=== PATIENT | female | born 1965 | race Hispanic/Latino ===

== ENCOUNTER 2020-10-21 18:32 | Emergency (ER) | payer OTHER ==
[~2020-10-21] VITALS: Ht 154.9 cm; Wt 83.9 kg
[~2020-10-21 18:32] MED LIST: KEFLEX500 MG PO; LEVAQUIN500 MG PO; NORCO 7.5-3251 EACH PO
[2020-10-21] MEDS ORDERED: ONDANSETRON HCL 4 MG ORAL DISINTEGRATING TAB PO ONE (19:00)
--- NOTE | 2020-10-21 19:18 | Emergency Department Note ---
History of Present Illnes History of Present Illness Chief Complaint: General Medicine Complaints History of Present Illness This is a 54 year old female in from home with complaints of two episodes of vomiting today with some diarrhea. Patient has a history of Crohns with a colostomy. Denies fever. Afebrile in triage. pt's daughter is here with same symptoms that started today, she also reports over the past week multiple family members have had n/v/d . Historian: Patient Arrival Mode: Car Administrative Personal Assistant Required: No Onset (how long ago): hour(s) (12) Location: abd Quality: n/v Radiation: Reports non-radiation Severity: mild Onset quality: sudden Duration (how long): hour(s) (12) Timing of current episode: intermittent Progression: waxing and waning Chronicity: new Context: Denies recent illness, Denies recent surgery Relieving factors: none Exacerbating factors: none Associated symptoms: Reports denies other symptoms Treatments prior to arrival: none Past Medical/Family History Physician Review I have reviewed the patient's past medical and family history. Any updates have been documented here. Past Medical History Recent Fever: No Clinical Suspicion of Infectio: No New/Unexplained Change in Ment: No Other Medical History: CROHNS DISEASE COLOSTOMY BAG Past Surgical History: Cholecysctectomy, Hysterectomy Other Surgery: bowel resection colostomy RECTUM CLOSED Social History Smoking Cessation: Never Smoker Counseling Performed: No Alcohol Use: Occasional Any Illegal Drug Use: No Other Last Tetanus: unknown Any Pre-Existing Lines (PICC,: No Review of Systems Review of Systems Constitutional: Reports no symptoms EENTM: Reports no symptoms Cardiovascular: Reports no symptoms Respiratory: Reports no symptoms Gastrointestinal: Reports as per HPI Genitourinary: Reports no symptoms Musculoskeletal: Reports no symptoms Integumentary: Reports no symptoms Neurological: Reports no symptoms Psychological: Reports no symptoms Endocrine: Reports no symptoms Hematological/Lymphatic: Reports no symptoms Physical Exam Related Data Allergies: Coded Allergies: No Known Drug Allergies (Verified Allergy, Unknown, 01/23/15) Triage Vital Signs Vital Signs Date Time Temp Pulse Resp B/P (MAP) Pulse Ox O2 Delivery O2 Flow Rate FiO2 10/21/20 18:49 98.6 111 17 117/80 100 Room Air Vital signs reviewed: Yes Physical Exam CONSTITUTIONAL Constitutional: Present well-developed, Present well-nourished HENT HENT: Present normocephalic, Present atraumatic, Present oropharynx clear/ moist, Present nose normal HENT L/R: Present left ext ear normal, Present right ext ear normal EYES Eyes: Reports PERRL, Reports conjunctivae normal NECK Neck: Present ROM normal PULMONARY Pulmonary: Present effort normal, Present breath sounds normal CARDIOVASCULAR Cardiovascular: Present regular rhythm, Present heart sounds normal, Present capillary refill normal, Present tachycardia (102) GASTROINTESTINAL Abdominal: Present soft, Present nontender, Present bowel sounds normal, Present other (colostomy present with stool and gas in collection bag) GENITOURINARY Genitourinary: Present exam deferred SKIN Skin: Present warm, Present dry MUSCULOSKELETAL Musculoskeletal: Present ROM normal NEUROLOGICAL Neurological: Present alert, Present oriented x 3, Present no gross motor or sensory deficits PSYCHOLOGICAL Psychological: Present mood/affect normal, Present judgement normal Assessment & Plan Medical Decision Making [facility] pt with n/v with multiple family members with same over past week 2 view abd ordered to eval for sbo since pr has colostomy zofran 4 mg po ordered Assessment & Plan Final Impression: (1) Nausea & vomiting (2) Viral syndrome Depart Disposition: HOME, SELF-CARE Last Vital Signs Date Time Temp Pulse Resp B/P (MAP) Pulse Ox O2 Delivery O2 Flow Rate FiO2 10/21/20 18:49 98.6 111 17 117/80 100 Room Air Home Meds Reported Medications Cephalexin Monohydrate (KEFLEX) 500 Mg Capsule, 500 MG PO TID, #20 03/16/16 Medications in the ED Ondansetron HCl 4 mg ONCE ONCE PO Last administered on 10/21/20at 19:08; Admin Dose 4 MG; Start 10/21/20 at 19:00; Stop 10/21/20 at 19:12; Status DC ANUPAMA STARR MD Oct 21, 2020 19:18
--- NOTE | 2020-10-21 20:27 | Diagnostic Imaging Report ---
EXAM: Abdomen Radiograph 1 View(s) INDICATION: ^flat and upright, vomitin ^20201021 ^1919 ^Y COMPARISON: None FINDINGS: No abnormalities in the lower chest. Nonobstructive bowel gas pattern. No abnormal calcification. Multilevel degenerative changes of the spine. The sacroiliac joints are symmetric. Surgical clips projecting over the right upper quadrant likely from cholecystectomy. Additional surgical clips seen projecting over the pelvis. IMPRESSION: Nonobstructive bowel gas pattern. No acute abdominal radiographic abnormality. Signed by: August Mack MD on 10/21/2020 8:24 PM
--- OUTSIDE RECORDS SUMMARY | 2020-10-21 20:31 | XMS REPORT | Continuity of Care Document ---
Author Author [facility] t Organization [facility] Address [address] [place] [address] Phone Unavailable Care Team Providers Care Preassembler [employer] Name Role Phone Vandana STARR Unavailable Payers Payer Name Policy Type Policy Number Effective Date Expiration Date S ource Problems This patient has no known problems. Allergies, Adverse Reactions, Alerts Allergy Name Allergy Type Status Severity Reaction(s) Onset Date Inacti ve Date Treating Clinician Comments Source No Known Allergies DA Active U 2019-06-20 00:00:00 [facility] No Known Allergies DA Active U 2018-02-04 00:00:00 [facility] Medications This patient has no known medications. Procedures This patient has no known procedures. Results Test Description Test Time Test Comments Results Result Comments Source ABDOMEN 2 VIEW 2020-10-21 20:22:00 [facility] : 1965 Sex: F [facility] [address], [place] [address] Patient Name: KVNG GREEN MR #: [id number] : 1965 Age/Sex: 54/F Req #: [id number] [facility] Physician: Ordered by: ANUPAMA STARR MD Report #: [id number] Location: ER Room/Bed: Procedure: [id number] DX/ABDOMEN 2 VIEW Exam Date: 10/21/20 Exam Time: 1919 REPORT STATUS: Signed EXAM: Abdomen Radiograph 1 View(s) INDICATION: flat and upright, vomitin 20201021 Y COMPARISON: None FINDINGS: No abnormalities in the lower chest. Nonobstructive bowel gas pattern. No abnormal calcification. Multilevel degenerative changes of the spine. The sacroiliac joints are symmetric. Surgical clips projecting over the right upper quadrant likely from cholecystectomy. Additional surgical clips seen projecting over the pelvis. IMPRESSION: Nonobstructive bowel gas pattern. No acute abdominal radiographic abnormality. Signed by: Clement Fish MD on 10/21/2020 8:24 PM Dictated By: CLEMENT FISH MD 23 Transcribed By: JULIA on 10/21/202023 COPY TO: ANUPAMA STARR MD UA RFLX MICROSOPIC 2019-06-21 01:51:00 Test Item UA COLOR (test code = COLU) DARK YELLOW YELLOW UA APPEARANCE (test code = APPU) HAZY CLEAR UA GLUCOSE DIPSTICK (test code = DGLUU) NEGATIVE mg/dL NEGATIVE UA BILIRUBIN DIPSTICK (test code = BILU) 1+ NEGATIVE A Not able to rule out false positive; No confirmatory test. UA KETONE DIPSTICK (test code = KETU) 15 mg/dL NEGATIVE A UA SPECIFIC GRAVITY (test code = SGU) 1.030 1.001-1.035 N UA BLOOD DIPSTICK (test code = BALDEMAR) 1+ NEGATIVE A UA PH DIPSTICK (test code = HODA) 5.0 5.5-7.0 L UA PROTEIN DIPSTICK (test code = PROU) 75 mg/dL NEGATIVE A UA UROBILINOGEN DIPSTICK (test code = URO) 1.0 mg/dL NORMAL UA NITRITE DIPSTICK (test code = JUAN JOSE) NEGATIVE NEGATIVE UA LEUKOCYTE ESTERASE DIPSTICK (test code = LEUU) 2+ NEGA TIVE A UA COMMENT (test code = COMU) VOLUME 10-12 ML URINE SPECIMEN DESCRIPTION (test code = UASPEC) Clean Catch UA [id number] 01:51:00* Test Item Value Reference Range Interpretation Comments UA WBC (test code = WBCU) > 10 #/hpf <10 A UA RBC (test code = RBCU) 5-10 #/hpf NONE SEEN A UA BACTERIA (test code = BACU) 2+ #/hpf NONE SEEN UA SQUAMOUS CELLS (test code = SQU) 20 - 40 #/lpf <100 UA HYALINE CAST (test code = HYALU) 5-10 #/lpf A UA RFLX [id number] 01:43:00* Test Item Value Reference Range Interpretation Comments UA COLOR (test code = COLU) DARK YELLOW YELLOW UA APPEARANCE (test code = APPU) HAZY CLEAR UA GLUCOSE DIPSTICK (test code = DGLUU) NEGATIVE mg/dL NEGATIVE UA BILIRUBIN DIPSTICK (test code = BILU) 1+ NEGATIVE A Not able to rule out false positive; No confirmatory test. UA KETONE DIPSTICK (test code = KETU) 15 mg/dL NEGATIVE A UA SPECIFIC GRAVITY (test code = SGU) 1.030 1.001-1.035 N UA BLOOD DIPSTICK (test code = BALDEMAR) 1+ NEGATIVE A UA PH DIPSTICK (test code = HODA) 5.0 5.5-7.0 L UA PROTEIN DIPSTICK (test code = PROU) 75 mg/dL NEGATIVE A UA UROBILINOGEN DIPSTICK (test code = URO) 1.0 mg/dL NORMAL UA NITRITE DIPSTICK (test code = JUAN JOSE) NEGATIVE NEGATIVE UA LEUKOCYTE ESTERASE DIPSTICK (test code = LEUU) 2+ NEGA TIVE A UA COMMENT (test code = COMU) VOLUME 10-12 ML URINE SPECIMEN DESCRIPTION (test code = UASPEC) Clean Catch UA [id number] 01:43:00* Test Item Value Reference Range Interpretation Comments UA WBC (test code = WBCU) #/hpf <10 UA RBC (test code = RBCU) #/hpf NONE SEEN UA SQUAMOUS CELLS (test code = SQU) #/lpf <100 UA RFLX [id number] 01:43:00* Test Item Value Reference Range Interpretation Comments UA COLOR (test code = COLU) DARK YELLOW YELLOW UA APPEARANCE (test code = APPU) HAZY CLEAR UA GLUCOSE DIPSTICK (test code = DGLUU) NEGATIVE mg/dL NEGATIVE UA BILIRUBIN DIPSTICK (test code = BILU) 1+ NEGATIVE A Not able to rule out false positive; No confirmatory test. UA KETONE DIPSTICK (test code = KETU) 15 mg/dL NEGATIVE A UA SPECIFIC GRAVITY (test code = SGU) 1.030 1.001-1.035 N UA BLOOD DIPSTICK (test code = BALDEMAR) 1+ NEGATIVE A UA PH DIPSTICK (test code = HODA) 5.0 5.5-7.0 L UA PROTEIN DIPSTICK (test code = PROU) 75 mg/dL NEGATIVE A UA UROBILINOGEN DIPSTICK (test code = URO) 1.0 mg/dL NORMAL UA NITRITE DIPSTICK (test code = JUAN JOSE) NEGATIVE NEGATIVE UA LEUKOCYTE ESTERASE DIPSTICK (test code = LEUU) 2+ NEGA TIVE A UA COMMENT (test code = COMU) VOLUME 10-12 ML URINE SPECIMEN DESCRIPTION (test code = UASPEC) Clean Catch UA [id number] 01:43:00* Test Item Value Reference Range Interpretation Comments UA WBC (test code = WBCU) #/hpf <10 UA RBC (test code = RBCU) #/hpf NONE SEEN UA SQUAMOUS CELLS (test code = SQU) #/lpf <100 - CT ABD PELVIS W/O [id number] 00:41:00 Patient Name: KVNG GREEN Unit No: [id number] EXAMS: CPT CODE: [id number] CT ABD PELVIS W/O CONT [id number] Reason: ABDOMINAL PAIN EXAM: CT Abdomen and Pelvis Without Contrast EXAM DATE/TIME: 06/21/2019 12:13 AM CLINICAL HISTORY: 53 years old, female; Abdominal pain TECHNIQUE: Imaging protocol: Axial computed tomography images of the abdomen and pelvis without contrast. Coronal and sagittal reformatted images were created and reviewed. Radiation optimization: All CT scans at this facility use at least one of these dose optimization techniques: automated exposure control; mA and/or kV adjustment per patient size (includes targeted exams where dose is matched to clinical indication); or iterative reconstruction. COMPARISON: No relevant prior studies available. FINDINGS: Liver: Moderate diffuse hepatic steatosis. No hepatic mass evident. Gallbladder and bile ducts: Status post cholecystec maggie, no biliary ductal dilation. Pancreas: Pancreas and pancreati c duct normal. Spleen: Normal in size without focal lesions. Adren als: Within normal limits. Kidneys and ureters: No solid renal mass, hydr onephrosis or hydroureter. Renal parenchyma well preserved. Stomac h and bowel: Status post subtotal colectomy. Appendix: No evidence of acu te appendicitis. Intraperitoneal space: No free air. No significant fluid collection. Vasculature: No aortic or iliac aneurysm. Lym ph nodes: No enlarged lymph nodes. Bladder: Unremarkable as visua lized. Reproductive: Unremarkable as visualized. Bones/joints: Mil d degenerative changes in the spine with prominent central disc protrusio n at L4-5, shallow right L3-4. Soft tissues: Unremarkable. IMPRESSION: No acute abnormality identified in the abdomen or pelvis. Diffuse hepatic steatosis and postsurgical changes as described. at 0041 Reported and signed by: LUIS RAY MD [facility] NAME: KVNG GREEN [address] [facility] PHYS: D[place] [address] : 1965 AGE: 53 SEX: F LOC: [facility] PHONE #: [phone] EXAM DATE: 06/21/2019 STATUS: REG ER FAX #: RAD NO: DC Dt: PAGE 1 Signed Report (CONTINUED) Patient Name: KVNG GREEN Unit No: [id number] EXAMS: CPT CODE: [id number] CT ABD PELVIS W/O CONT [id number] <Continued> Reason: ABDOMINAL PAIN CC: Dai Benton DO Techno logist: Viktoriya Mendes RT Trscrpt Dt/T: (004)[email or web address].VR Orig Print D/T: S: 06/21/2019 (004) CTDI: DLP: [facility] NA ME: KVNG GREEN [address] PHYS: D[place] [address] : [birth year] AGE: 53 SEX: F 890 LOC: [facility] PHONE #: [phone] EXAM DATE: 06/21/2019 STATUS: REG ER FAX #: RAD NO: DC Dt: PAGE 2 Signed Report - XR CHEST 1 [id number] 00:32:00 Patient Name: KVNG GREEN Unit No: [id number] EXAMS: CPT CODE: [id number] XR CHEST 1 V [id number] Reason: sepsis EXAM: XR Chest, 1 View EXAM DATE/TIME: 06/20/2019 11:54 PM CLINICAL HISTORY: 53 years old, female; Other: Sepsis TECHNIQUE: Imaging protocol: XR of the chest, 1 view. COMPARISON: No relevant prior studies available. FINDINGS: Lungs: No mass, consolidation or pulmonary edema. Pleural space: No pleural effusion. No pneumothorax. Heart/Mediastinum: The cardiomediastinal silhouette and pulmonary vessels appear normal for age, technique and projection. Bones/joints: No acute fracture, dislocation or bony destruction. IMPRESSION: No active process identified in the chest. at 0032 Reported and signed by: LUIS RAY MD CC: Dai Benton DO Technologist: Mali Ervin RT Trscrpt Dt/ (003 )[email or web address].VR Orig Print D/T: S: 06/21/2019 (003) [facility] NAME: KVNG GREEN [address] PHYS: Flory [place] [address] : 1965 AGE: 53 SE X: F LOC: [facility] PHONE #: [phone] EXAM DATE: 06/20/2019 STATUS: REG ER FAX #: RAD NO: DC Dt: PAGE 1 Signed Report C REACTIVE [id number] 00:18:00* Test Item Value Reference Range Interpretation Comments C REACTIVE PROTEIN (test code = CRP) 1.7 MG/DL < 0.9 H [id number] 00:11:00* Test Item Value Reference Range Interpretation Comments PHOSPHOROUS (test code = PHOS) 4.7 MG/DL 2.5-4.9 N PROTHROMBIN [id number] 23:55:00* Test Item Value Reference Range Interpretation Comments PROTHROMBIN TIME PATIENT (test code = PTP) 12.0 SECONDS 9.6-12.3 N INTERNATIONAL NORMAL RATIO (test code = INR) 1.06 Recommended INR range (warfarin therapy): 2.0 - 3.0INR (International Normalized Ratio) should beused when interpreting oral anticoaglulant therapy. For atrial fibrillation and treatment orprevention of deep vein thrombosis. Patients with Palmaz-Mary stent *: 2.0 - 3.0 Patients with mechanical heart valve *: 2.5 - 3.5 Patients with flex-stent *: 3.0 - 4.0(*) = delivery professional's suggested range Is patient on anticoagulants? UnknownLACTIC ACID [id number] 23:54:00* Test Item Value Reference Range Interpretation Comments LACTIC ACID POC (test code = LACTP) 1.73 MMOL/L 0.90-1.70 H Performed by certified singeing torch operator at [facility] COMPREHENSIVE METABOLIC [id number] 23:43:00* Test Item Value Reference Range Interpretation Comments SODIUM (test code = NA) 134 MMOL/L 133-145 N POTASSIUM (test code = K) 4.2 MMOL/L 3.6-5.2 N CHLORIDE (test code = CL) 96 MMOL/L 100-108 L CARBON DIOXIDE (test code = CO2) 21 MMOL/L 22-32 L GLUCOSE (test code = GLU) 151 MG/DL 65-99 H Re sults of this assay method may be falsely depressed orelevated if patient is taking sulfasalazine. BLOOD UREA NITROGEN (test code = BUN) 26 MG/DL 6-20 H GLOMERULAR FILTRATION RATE (test code = GFR) 24 51-120 L Reporting units: mL/min/1.73m\S\2 (Modified MDRD Formula) CREATININE (test code = CREAT) 2.17 MG/DL 0.60-1.00 H TOTAL PROTEIN (test code = PROT) 10.3 G/DL 6.4-8.2 H ALBUMIN (test code = ALB) 5.0 G/DL 3.4-5.0 N GLOBULIN (test code = GLOB) 5.3 G/DL 1.5-3.8 H ALBUMIN/GLOBULIN RATIO (test code = A/G) 0.9 1.1-2.2 L CALCIUM (test code = CA) 12.3 MG/DL 8.7-10.5 H BILIRUBIN TOTAL (test code = BILT) 0.8 MG/DL 0.0-1.0 N SGOT/AST (test code = AST) 40 Units/L 15-37 H R esults of this assay method may be falsely depressed orelevated if patient is taking sulfasalazine. SGPT/ALT (test code = ALT) 28 Units/L 30-65 L R esults of this assay method may be falsely depressed orelevated if patient is taking sulfasalazine. ALKALINE PHOSPHATASE TOTAL (test code = ALKP) 98 Units/L 50-136 N [id number] 23:43:00* Test Item Value Reference Range Interpretation Comments LIPASE (test code = LIP) 138 Units/L 73-393 N TROPONIN I [id number] 23:26:00* Test Item Value Reference Range Interpretation Comments TROPONIN I RAPID (test code = TROPIRAP) 0.00 NG/ML 0.00-0.08 N Performed by certified singeing torch operator at [facility] - The use of serial sampling and testing protocol is a recommended practice.- An elevated troponin level alone is often not sufficient for diagnosis of myocardial infarction. CBC W/AUTO [id number] 23:23:00* Test Item Value Reference Range Interpretation Comments WHITE BLOOD CELL (test code = WBC) 13.74 x10 3/uL 4.80-10.80 H Results called to and read back by KARLI ASHER;2322, 06/20/19, D.[facility]. RED BLOOD CELL (test code = RBC) 5.52 x10 6/uL 4.2-5.4 H HEMOGLOBIN (test code = HGB) 16.0 G/DL 12.0-16.0 N HEMATOCRIT (test code = HCT) 48.1 % 37-47 H MEAN CELL VOLUME (test code = MCV) 87.1 FL 81-99 N MEAN CELL HGB (test code = MCH) 29.0 PG 27-31 N MEAN CELL HGB CONCENTRATION (test code = MCHC) 33.3 G/DL 33-37 N RED CELL DISTRIBUTION WIDTH (test code = RDW) 12.8 % 11.5-14. 5 N PLATELET COUNT (test code = PLT) 354 x10 3/uL 150-450 N MEAN PLATELET VOLUME (test code = MPV) 9.6 FL 7.4-10.4 N NEUTROPHIL % (test code = NT%) 93.5 % 42-86 H IMMATURE GRANULOCYTE % (test code = IG%) 0.3 % 0.0-2.0 N LYMPHOCYTE % (test code = LY%) 3.2 % 24-44 L MONOCYTE % (test code = MO%) 2.4 % 0.0-4.0 N EOSINOPHIL % (test code = EO%) 0.4 % 0.0-2.7 N BASOPHIL % (test code = BA%) 0.2 % 0.0-0.5 N NUCLEATED RBC % (test code = NRBC%) 0.0 % 0.0-0.0 N NEUTROPHIL # (test code = NT#) 12.85 x10 3/uL 1.8-7.7 H IMMATURE GRANULOCYTE # (test code = IG#) 0.04 x10 3/uL 0.00-0.03 H LYMPHOCYTE # (test code = LY#) 0.44 x10 3/uL 1.0-4.8 L MONOCYTE # (test code = MO#) 0.33 x10 3/uL 0.0-0.8 N EOSINOPHIL # (test code = EO#) 0.05 x10 3/uL 0.0-0.5 N BASOPHIL # (test code = BA#) 0.03 x10 3/uL 0.0-0.2 N NUCLEATED RBC # (test code = NRBC#) 0.0 X10 3/uL 0.0-0.2 N
[2020-10-21] MEDS ORDERED: PROMETHAZINE HCL (IM) 25 MG/ML VIAL IM ONE ×2 (20:45→20:47)
[2020-10-21] MEDS ORDERED: DICYCLOMINE HCL 20 MG/2 ML VIAL IM ONE ×2 (20:45→20:46)
== END 2020-10-21 21:08 | disposition home or self-care (01) ==
LOC: ER 18:58
DX: R11.2 Nausea with vomiting, unspecified (principal); B34.9 Viral infection, unspecified; Z87.19 Personal history of other diseases of the digestive system; Z93.3 Colostomy status
CPT/HCPCS: 74019; 99283; J0500; J2550; Q0162

== ENCOUNTER 2024-09-29 13:49 | Inpatient (IN) | payer OTHER ==
[~2024-09-29] VITALS: Ht 162.6 cm; Wt 83.9 kg
[~2024-09-29 13:49] MED LIST changes: +FENOFIBRATE145 MG PO
[2024-09-29 13:55] VITALS: TEMP 98.2
[2024-09-29 14:39] LABS: BASOPHILS % 0.2 % (0.0-1.0); EOSINOPHILS # (AUTO) 0.1 (0.0-0.4); EOSINOPHILS % 0.4 % (0.0-6.0); HEMOGLOBIN 12.5 g/dL (12.0-16.0); LYMPHOCYTES # (AUTO) 0.9 (1.0-3.2); LYMPHOCYTES % 7.4 % (18.0-39.1); MEAN CORPUSCULAR HEMOGLOBIN 29.1 pg (28-32); MEAN CORPUSCULAR HGB CONC 33.8 g/dL (31-35); MONOCYTES # (AUTO) 0.6 (0.2-0.8); MONOCYTES % 4.9 % (4.4-11.3); NEUTROPHILS # (AUTO) 10.3 (2.1-6.9); NEUTROPHILS % 86.7 % (38.7-80.0); PLATELET COUNT 358 x10e3/uL (140-360); RED CELL DISTRIBUTION WIDTH 12.9 % (11.7-14.4); WHITE BLOOD COUNT 11.92 x10e3/uL (4.8-10.8)
[2024-09-29] MEDS ORDERED: IOPAMIDOL 370 MG/ML 100 ML INFUS..BTL INJ ONE (14:48)
[2024-09-29 14:55] LABS: ALANINE AMINOTRANSFERASE 13 IU/L (0-55); ALBUMIN 2.5 g/dL (3.5-5.0); ALBUMIN/GLOBULIN RATIO 0.5 (0.8-2.0); ALKALINE PHOSPHATASE 63 IU/L (40-150); ANION GAP 18.7 mmol/L (8-16); BILIRUBIN,TOTAL 0.7 mg/dL (0.2-1.2); BLOOD UREA NITROGEN 18 mg/dL (7-26); BUN/CREATININE RATIO 25 (6-25); CALCIUM 9.9 mg/dL (8.4-10.2); CARBON DIOXIDE 20 mmol/L (22-29); CHLORIDE 102 mmol/L (98-107); CREATINE KINASE 48 IU/L (29-168); CREATININE, SERUM 0.71 mg/dL (0.57-1.11); EST GLOMERULAR FILTRATION RATE 100 ML/MIN (>=60); GLUCOSE 107 mg/dL (74-118); LIPASE 111 U/L (8-78); POTASSIUM 3.7 mmol/L (3.5-5.1); SODIUM 137 mmol/L (136-145); TOTAL PROTEIN 7.2 g/dL (6.5-8.1)
[2024-09-29 15:07] LABS: TROPONIN I < 0.001 ng/mL (0-0.300)
[2024-09-29] MEDS: SODIUM CHLORIDE 0.9% 1000ML 1,000 ML IV STA (15:07)
[2024-09-29] MEDS: ONDANSETRON HCL INJ 2MG/ML 2ML 2 MG/ML VIAL IV STA (15:08)
[2024-09-29] MEDS: Morphine 4mg INJECTION 4 MG/ML INJ IV STA (15:08)
[2024-09-29] MEDS: SODIUM CHLORIDE 0.9% 1000ML 1,000 ML IV SCH (17:03)
[2024-09-29] MEDS ORDERED: HYDRALAZINE HCL 20 MG/ML VIAL IV PRN (19:00)
[2024-09-29 20:30] VITALS: PULSE 81; RESP 19
[2024-09-29 21:10] VITALS: BP 137/81; PULSE 67; RESP 18; TEMP 98.5; O2SAT 97
[2024-09-30] VITALS (9 sets, daily range): BP systolic 120–141; BP diastolic 68–71; PULSE 52–74; RESP 18–20; TEMP 97.5–98.1; O2SAT 98–100
[2024-09-30] MEDS: ONDANSETRON HCL INJ 2MG/ML 2ML 2 MG/ML VIAL IV PRN (00:44)
[2024-09-30] MEDS: Morphine 4mg INJECTION 4 MG/ML INJ IV PRN (00:45)
[2024-09-30 01:18] LABS: CLARITY,URINE CLEAR (CLEAR); COLOR,URINE YELLOW (YELLOW); LEUKOCYTE ESTERASE ,URINE NEGATIVE (NEGATIVE); NITRITE,URINE NEGATIVE (NEGATIVE); PH,URINE 6 (5 - 7)
[2024-09-30 01:19] LABS: BILIRUBIN,URINE SMALL (NEGATIVE); GLUCOSE, URINE NEGATIVE (NEGATIVE); KETONES,URINE 1+ (NEGATIVE); PROTEIN,URINE DIPSTICK 1+ (NEGATIVE); URINE UROBILINOGEN 0.2 mg/dL (0.2 - 1)
[2024-09-30 01:36] LABS: BACTERIA,URINE MODERATE /HPF; EPITHELIAL CELLS,URINE MODERATE /LPF
[2024-09-30 05:14] LABS: BASOPHILS % 0.2 % (0.0-1.0); EOSINOPHILS # (AUTO) 0.2 (0.0-0.4); HEMATOCRIT 31.1 % (34.2-44.1); LYMPHOCYTES # (AUTO) 1.2 (1.0-3.2); LYMPHOCYTES % 15.1 % (18.0-39.1); MEAN CORPUSCULAR HEMOGLOBIN 29.2 pg (28-32); MEAN CORPUSCULAR HGB CONC 32.2 g/dL (31-35); MEAN CORPUSCULAR VOLUME 90.9 fL (81-99); MONOCYTES # (AUTO) 0.5 (0.2-0.8); MONOCYTES % 5.8 % (4.4-11.3); NEUTROPHILS # (AUTO) 6.1 (2.1-6.9); NEUTROPHILS % 75.3 % (38.7-80.0); PLATELET COUNT 352 x10e3/uL (140-360); RED BLOOD COUNT 3.42 x10e6/uL (3.6-5.1); RED CELL DISTRIBUTION WIDTH 12.8 % (11.7-14.4); WHITE BLOOD COUNT 8.13 x10e3/uL (4.8-10.8)
[2024-09-30 05:52] LABS: ALBUMIN/GLOBULIN RATIO 0.5 (0.8-2.0); ANION GAP 13.2 mmol/L (8-16); BILIRUBIN,TOTAL 0.6 mg/dL (0.2-1.2); CALCIUM 8.7 mg/dL (8.4-10.2); CREATININE, SERUM 0.65 mg/dL (0.57-1.11); TOTAL PROTEIN 5.8 g/dL (6.5-8.1)
[2024-09-30 05:54] LABS: POTASSIUM 3.2 mmol/L (3.5-5.1)
[2024-09-30 06:14] LABS: CHOL/HDL RATIO 4.3 (3.0-3.6); MAGNESIUM 1.8 MG/DL (1.3-2.1); PHOSPHORUS 2.2 MG/DL (2.3-4.7)
[2024-09-30 06:36] LABS: FREE T4 (FREE THYROXINE) 0.86 ng/dL (0.8-1.8); THYROID STIMULATING HORMONE 0.727 uIU/mL (0.350-4.940)
[2024-09-30] MEDS: POTASSIUM CHLORIDE 10MEQ/100ML 100 ML IV ONE (20:48)
[2024-10-01] VITALS (10 sets, daily range): BP systolic 130–149; BP diastolic 65–78; PULSE 43–58; RESP 16–20; TEMP 97.2–98.1; O2SAT 95–100
[2024-10-01 05:41] LABS: BASOPHILS % 0.4 % (0.0-1.0); EOSINOPHILS # (AUTO) 0.3 (0.0-0.4); EOSINOPHILS % 4.8 % (0.0-6.0); HEMATOCRIT 29.6 % (34.2-44.1); HEMOGLOBIN 9.4 g/dL (12.0-16.0); LYMPHOCYTES # (AUTO) 1.3 (1.0-3.2); LYMPHOCYTES % 22.9 % (18.0-39.1); MEAN CORPUSCULAR HEMOGLOBIN 29.1 pg (28-32); MEAN CORPUSCULAR HGB CONC 31.8 g/dL (31-35); MEAN CORPUSCULAR VOLUME 91.6 fL (81-99); MONOCYTES # (AUTO) 0.5 (0.2-0.8); MONOCYTES % 8.1 % (4.4-11.3); NEUTROPHILS # (AUTO) 3.6 (2.1-6.9); NEUTROPHILS % 62.9 % (38.7-80.0); PLATELET COUNT 327 x10e3/uL (140-360); RED BLOOD COUNT 3.23 x10e6/uL (3.6-5.1); RED CELL DISTRIBUTION WIDTH 12.9 % (11.7-14.4); WHITE BLOOD COUNT 5.67 x10e3/uL (4.8-10.8)
[2024-10-01 06:02] LABS: ANION GAP 13.1 mmol/L (8-16); CALCIUM 8.4 mg/dL (8.4-10.2); CREATININE, SERUM 0.63 mg/dL (0.57-1.11)
[2024-10-01 06:08] LABS: POTASSIUM 3.1 mmol/L (3.5-5.1)
[2024-10-01] MEDS: POTASSIUM CHLORIDE 20MEQ/100ML 100 ML IV SCH (14:00)
[2024-10-01] MEDS: POTASSIUM CHLORIDE 10MEQ EA PO ONE (20:57)
[2024-10-02] VITALS (10 sets, daily range): BP systolic 115–149; BP diastolic 53–79; PULSE 44–87; RESP 18; TEMP 97.5–98.2; O2SAT 95–100
[2024-10-02 05:10] LABS: BASOPHILS % 0.5 % (0.0-1.0); EOSINOPHILS # (AUTO) 0.3 (0.0-0.4); EOSINOPHILS % 4.1 % (0.0-6.0); HEMATOCRIT 27.9 % (34.2-44.1); HEMOGLOBIN 9.3 g/dL (12.0-16.0); LYMPHOCYTES # (AUTO) 1.6 (1.0-3.2); LYMPHOCYTES % 24.8 % (18.0-39.1); MEAN CORPUSCULAR HEMOGLOBIN 29.2 pg (28-32); MEAN CORPUSCULAR HGB CONC 33.3 g/dL (31-35); MEAN CORPUSCULAR VOLUME 87.5 fL (81-99); MONOCYTES # (AUTO) 0.5 (0.2-0.8); NEUTROPHILS # (AUTO) 3.9 (2.1-6.9); NEUTROPHILS % 60.9 % (38.7-80.0); PLATELET COUNT 359 x10e3/uL (140-360); RED BLOOD COUNT 3.19 x10e6/uL (3.6-5.1); WHITE BLOOD COUNT 6.36 x10e3/uL (4.8-10.8)
[2024-10-02 05:12] LABS: ANION GAP 15.3 mmol/L (8-16); CALCIUM 8.4 mg/dL (8.4-10.2); CREATININE, SERUM 0.63 mg/dL (0.57-1.11)
[2024-10-02 05:32] LABS: POTASSIUM 3.3 mmol/L (3.5-5.1)
[2024-10-02 05:35] LABS: FERRITIN 488.29 ng/mL (4.63-204.00)
[2024-10-02 06:09] LABS: RETICULOCYTE % 1.5 % (0.8-2.2)
[2024-10-02 06:30] LABS: FOLATE 15.2 ng/mL (7.0-15.4)
[2024-10-02] MEDS: CYANOCOBALAMIN INJ 1,000 MCG/ML VIAL IM SCH (10:14)
[2024-10-02] MEDS: POTASSIUM CHLORIDE 10MEQ EA PO SCH (10:16)
[2024-10-03 01:14] VITALS: BP 139/71; PULSE 48; RESP 18; TEMP 98.2; O2SAT 100
[2024-10-03 05:36] VITALS: BP 126/63; PULSE 46; RESP 18; TEMP 97.7; O2SAT 96
[2024-10-03 05:39] VITALS: BP 123/63; PULSE 46; RESP 18; TEMP 97.7; O2SAT 96
[2024-10-03 11:58] VITALS: BP 141/68; PULSE 45; RESP 19; TEMP 98.2; O2SAT 97
[2024-10-03] MEDS ORDERED: ONDANSETRON ODT4 MG PO (13:07)
[2024-10-03 13:44] LABS: ANION GAP 14.4 mmol/L (8-16); CALCIUM 8.7 mg/dL (8.4-10.2); CREATININE, SERUM 0.62 mg/dL (0.57-1.11); MAGNESIUM 1.7 MG/DL (1.3-2.1)
[2024-10-03 13:52] LABS: POTASSIUM 3.4 mmol/L (3.5-5.1)
[2024-10-03 15:03] LABS: PHOSPHORUS 2.6 MG/DL (2.3-4.7)
[2024-10-03 16:42] VITALS: BP 150/69; PULSE 53; RESP 20; TEMP 98; O2SAT 98
[2024-10-03] MEDS: POTASSIUM CHLORIDE 20 MEQ TAB CR PO ONE (17:18)
[2024-10-03] MEDS: MAGNESIUM OXIDE 400 MG TAB PO ONE (17:18)
== END 2024-10-03 17:30 | disposition home or self-care (01) | DRG 394 ==
LOC: ER 13:55 → ERHOLD 16:26 → MED/SURG 21:10 → OBSVTOIN 10-01 10:49 → MED/SURG2 10-02 13:47
PROVIDERS: ADMIT Internal Medicine; ATTEND Internal Medicine
DX: K91.89 Other postprocedural complications and disorders of digestive system (principal); K50.90 Crohn's disease, unspecified, without complications; K56.7 Ileus, unspecified; K86.1 Other chronic pancreatitis; R00.1 Bradycardia, unspecified; R00.8 Other abnormalities of heart beat; I49.1 Atrial premature depolarization; R53.1 Weakness; E83.39 Other disorders of phosphorus metabolism; E83.42 Hypomagnesemia; E78.5 Hyperlipidemia, unspecified; Z93.2 Ileostomy status; Z90.49 Acquired absence of other specified parts of digestive tract
CPT/HCPCS: 36415; 71045; 74177; 80048; 80053; 80061; 81001; 82550; 82607; 82728; 82746; 83036; 83540; 83690; 83735; 84100; 84439; 84443; 84466; 84484; 85025; 85045; 93005; 94799; 99252; 99284; G0378; J2270; J2405; J2543; J3420; J3480; J7030; Q9967

== ENCOUNTER 2024-10-16 10:51 | Inpatient (IN) | payer OTHER ==
[~2024-10-16] VITALS: Ht 162.6 cm; Wt 83.9 kg
[~2024-10-16 10:51] MED LIST changes: +ONDANSETRON ODT4 MG PO
[2024-10-16 11:00] VITALS: TEMP 98.4
[2024-10-16 11:27] LABS: BASOPHILS % 0.6 % (0.0-1.0); EOSINOPHILS # (AUTO) 0.1 (0.0-0.4); HEMATOCRIT 42.9 % (34.2-44.1); HEMOGLOBIN 13.5 g/dL (12.0-16.0); LYMPHOCYTES % 13.7 % (18.0-39.1); MEAN CORPUSCULAR HEMOGLOBIN 28.7 pg (28-32); MEAN CORPUSCULAR HGB CONC 31.5 g/dL (31-35); MEAN CORPUSCULAR VOLUME 91.3 fL (81-99); MONOCYTES # (AUTO) 0.4 (0.2-0.8); MONOCYTES % 5.3 % (4.4-11.3); NEUTROPHILS # (AUTO) 5.6 (2.1-6.9); NEUTROPHILS % 78.1 % (38.7-80.0); PLATELET COUNT 440 x10e3/uL (140-360); RED CELL DISTRIBUTION WIDTH 13.2 % (11.7-14.4); WHITE BLOOD COUNT 7.17 x10e3/uL (4.8-10.8)
[2024-10-16] MEDS: SODIUM CHLORIDE 0.9% 1000ML 1,000 ML IV STA (11:32)
[2024-10-16 11:33] LABS: INR 1.03; PARTIAL THROMBOPLASTIN TIME 29.3 seconds (23.8-35.5); PROTHROMBIN TIME 14.1 seconds (11.9-14.5)
[2024-10-16] MEDS: ONDANSETRON HCL INJ 2MG/ML 2ML 2 MG/ML VIAL IV STA (11:33)
[2024-10-16] MEDS: Morphine 2mg Syringe 2 MG/ML SYR IV STA (11:41)
[2024-10-16 11:43] LABS: ALBUMIN/GLOBULIN RATIO 0.9 (0.8-2.0); ANION GAP 21.7 mmol/L (8-16); BILIRUBIN,TOTAL 1.1 mg/dL (0.2-1.2); CALCIUM 10.7 mg/dL (8.4-10.2); CREATININE, SERUM 0.9 mg/dL (0.57-1.11); POTASSIUM 3.7 mmol/L (3.5-5.1); TOTAL PROTEIN 8.5 g/dL (6.5-8.1)
[2024-10-16] MEDS: SODIUM CHLORIDE 0.9% 1000ML 1,000 ML IV SCH (11:45)
[2024-10-16] MEDS ORDERED: Morphine 2mg Syringe 2 MG/ML SYR IV PRN (11:45)
[2024-10-16] MEDS ORDERED: IOPAMIDOL 370 MG/ML 100 ML INFUS..BTL INJ ONE (11:54)
[2024-10-16] MEDS: SODIUM CHLORIDE 0.9% 250ML IRRIG IR SCH (12:45)
[2024-10-16 12:49] VITALS: PULSE 74; RESP 17
[2024-10-16] MEDS: BENZOCAINE/TETRACAINE/BUTAMBEN AERO SPRAY 56 GM CAN TOP ONE (15:59)
[2024-10-16] MEDS: PROMETHAZINE 25MG/ NS 50ML (IV) IV ONE (16:00)
[2024-10-16] MEDS: ONDANSETRON HCL INJ 2MG/ML 2ML 2 MG/ML VIAL IV PRN (16:21)
[2024-10-16 16:29] VITALS: BP 133/68; PULSE 79; RESP 18; TEMP 97.5; O2SAT 100
[2024-10-16 16:36] VITALS: BP 133/68; PULSE 79; RESP 18; TEMP 97.5; O2SAT 100
[2024-10-16 16:44] VITALS: BP 133/68; PULSE 79; RESP 18; TEMP 97.5; O2SAT 100
[2024-10-16 20:00] VITALS: BP 125/69; PULSE 85; RESP 18; TEMP 98.3; O2SAT 100
[2024-10-17] VITALS (7 sets, daily range): BP systolic 137–157; BP diastolic 69–83; PULSE 63–89; RESP 17–20; TEMP 97.8–98.3; O2SAT 97–100
[2024-10-17 06:07] LABS: BASOPHILS % 0.6 % (0.0-1.0); EOSINOPHILS # (AUTO) 0.1 (0.0-0.4); EOSINOPHILS % 0.8 % (0.0-6.0); LYMPHOCYTES # (AUTO) 0.9 (1.0-3.2); LYMPHOCYTES % 14.1 % (18.0-39.1); MEAN CORPUSCULAR HEMOGLOBIN 28.4 pg (28-32); MEAN CORPUSCULAR HGB CONC 32.4 g/dL (31-35); MEAN CORPUSCULAR VOLUME 87.7 fL (81-99); MONOCYTES # (AUTO) 0.5 (0.2-0.8); MONOCYTES % 8.2 % (4.4-11.3); NEUTROPHILS # (AUTO) 4.8 (2.1-6.9); NEUTROPHILS % 75.7 % (38.7-80.0); PLATELET COUNT 402 x10e3/uL (140-360); RED BLOOD COUNT 4.22 x10e6/uL (3.6-5.1); RED CELL DISTRIBUTION WIDTH 13.6 % (11.7-14.4); WHITE BLOOD COUNT 6.38 x10e3/uL (4.8-10.8)
[2024-10-17 08:14] LABS: ALBUMIN 3.4 g/dL (3.5-5.0); ALBUMIN/GLOBULIN RATIO 0.9 (0.8-2.0); ANION GAP 20.3 mmol/L (8-16); BILIRUBIN,TOTAL 1.2 mg/dL (0.2-1.2); CALCIUM 9.4 mg/dL (8.4-10.2); CREATININE, SERUM 0.88 mg/dL (0.57-1.11)
[2024-10-17 08:19] LABS: POTASSIUM 3.3 mmol/L (3.5-5.1)
[2024-10-17] MEDS: PROMETHAZINE 12.5MG/ NACL 0.9% 12.5 MG/50 ML BAG IV PRN (15:40)
[2024-10-18] VITALS (36 sets, daily range): BP systolic 85–132; BP diastolic 64–86; PULSE 61–113; RESP 15–22; TEMP 97.1–98.3; O2SAT 95–99
[2024-10-18 05:43] LABS: BASOPHILS % 0.7 % (0.0-1.0); EOSINOPHILS # (AUTO) 0.2 (0.0-0.4); EOSINOPHILS % 4.1 % (0.0-6.0); HEMOGLOBIN 10.4 g/dL (12.0-16.0); LYMPHOCYTES # (AUTO) 1.2 (1.0-3.2); LYMPHOCYTES % 20.6 % (18.0-39.1); MEAN CORPUSCULAR HGB CONC 31.5 g/dL (31-35); MEAN CORPUSCULAR VOLUME 91.9 fL (81-99); MONOCYTES # (AUTO) 0.4 (0.2-0.8); MONOCYTES % 7.4 % (4.4-11.3); NEUTROPHILS # (AUTO) 3.7 (2.1-6.9); NEUTROPHILS % 66.8 % (38.7-80.0); PLATELET COUNT 297 x10e3/uL (140-360); RED BLOOD COUNT 3.59 x10e6/uL (3.6-5.1); RED CELL DISTRIBUTION WIDTH 13.6 % (11.7-14.4); WHITE BLOOD COUNT 5.57 x10e3/uL (4.8-10.8)
[2024-10-18 06:07] LABS: ALBUMIN 2.8 g/dL (3.5-5.0); BILIRUBIN,TOTAL 0.8 mg/dL (0.2-1.2); CALCIUM 8.7 mg/dL (8.4-10.2); CREATININE, SERUM 0.81 mg/dL (0.57-1.11); TOTAL PROTEIN 5.6 g/dL (6.5-8.1)
[2024-10-18] MEDS ORDERED: ROCURONIUM BROMIDE 1 ML IV ONE ×4 (08:26→10:29)
[2024-10-18] MEDS ORDERED: FENTANYL CITRATE/PF 100MCG/2 ML INJ ONE (08:26)
[2024-10-18] MEDS ORDERED: PROPOFOL IV EMULSION 10 MG/ML 20 ML VIAL ONE (08:28)
[2024-10-18] MEDS ORDERED: ONDANSETRON HCL INJ 2MG/ML 2ML 2 MG/ML VIAL ONE (09:33)
[2024-10-18] MEDS ORDERED: LIDOCAINE HCL 2% LOCAL INJ 5 ML SDV VIAL INJ ONE (09:34)
[2024-10-18] MEDS ORDERED: DEXAMETHASONE SOD PHOS INJ 4 MG/ML SDV ONE (09:34)
[2024-10-18] MEDS ORDERED: BUPIVACAINE/EPI 0.5% 30ML SDV-MPF INJ ONE ×2 (09:34)
[2024-10-18] MEDS ORDERED: METOCLOPRAMIDE HCL 10 MG/2ML VIAL ONE (09:34)
[2024-10-18] MEDS ORDERED: SUCCINYLCHOLINE CHLORIDE 20 MG/ML 10ML VIAL ONE (10:01)
[2024-10-18] MEDS ORDERED: HYDROMORPHONE 2MG/ML ONE (10:01)
[2024-10-18] MEDS ORDERED: KETOROLAC TROMETHAMINE 30 MG/ML VIAL ONE (10:07)
[2024-10-18] MEDS ORDERED: EPHEDRINE SULFATE INJ 50 MG/ML VIAL ONE (11:12)
[2024-10-18] MEDS ORDERED: NALOXONE HCL INJ 0.4 MG/ML AMP IV PRN (13:45)
[2024-10-18] MEDS: SODIUM CHLORIDE 0.9% 250ML IRRIG IR SCH (13:45)
[2024-10-18] MEDS: HYDROMORPHONE 0.2MG/ML-SOD CHL 30ML PCA SYRINGE IV PRN (14:11)
[2024-10-18] MEDS: MEROPENEM 1 GM in SODIUM CHLORIDE 0.9% 100 ML IV SCH (15:33)
[2024-10-18] MEDS: D5.45%NS/KCL 20MEQ 1,000 ML IV SCH (15:33)
[2024-10-18 17:25] LABS: BASOPHILS % 0.1 % (0.0-1.0); EOSINOPHILS % 0.1 % (0.0-6.0); HEMATOCRIT 40.4 % (34.2-44.1); HEMOGLOBIN 12.8 g/dL (12.0-16.0); LYMPHOCYTES # (AUTO) 0.4 (1.0-3.2); LYMPHOCYTES % 3.9 % (18.0-39.1); MEAN CORPUSCULAR HEMOGLOBIN 28.9 pg (28-32); MEAN CORPUSCULAR HGB CONC 31.7 g/dL (31-35); MEAN CORPUSCULAR VOLUME 91.2 fL (81-99); MONOCYTES # (AUTO) 0.6 (0.2-0.8); MONOCYTES % 5.2 % (4.4-11.3); NEUTROPHILS # (AUTO) 9.7 (2.1-6.9); NEUTROPHILS % 90.3 % (38.7-80.0); PLATELET COUNT 282 x10e3/uL (140-360); RED BLOOD COUNT 4.43 x10e6/uL (3.6-5.1); RED CELL DISTRIBUTION WIDTH 13.8 % (11.7-14.4); WHITE BLOOD COUNT 10.71 x10e3/uL (4.8-10.8)
[2024-10-18 17:44] LABS: ANION GAP 15.6 mmol/L (8-16); CALCIUM 7.4 mg/dL (8.4-10.2); CREATININE, SERUM 0.61 mg/dL (0.57-1.11); POTASSIUM 3.6 mmol/L (3.5-5.1)
[2024-10-19] VITALS (33 sets, daily range): BP systolic 81–122; BP diastolic 57–73; PULSE 84–116; RESP 12–19; TEMP 97.8–98.4; O2SAT 94–99
[2024-10-19 07:53] LABS: BASOPHILS # (AUTO) 0.1 (0.0-0.1); BASOPHILS % 0.6 % (0.0-1.0); EOSINOPHILS % 0.2 % (0.0-6.0); HEMATOCRIT 41.4 % (34.2-44.1); HEMOGLOBIN 13.1 g/dL (12.0-16.0); LYMPHOCYTES # (AUTO) 0.7 (1.0-3.2); LYMPHOCYTES % 5.4 % (18.0-39.1); MEAN CORPUSCULAR HEMOGLOBIN 29.5 pg (28-32); MEAN CORPUSCULAR HGB CONC 31.6 g/dL (31-35); MEAN CORPUSCULAR VOLUME 93.2 fL (81-99); MONOCYTES # (AUTO) 0.6 (0.2-0.8); MONOCYTES % 4.9 % (4.4-11.3); NEUTROPHILS # (AUTO) 11.1 (2.1-6.9); NEUTROPHILS % 88.3 % (38.7-80.0); PLATELET COUNT 267 x10e3/uL (140-360); RED BLOOD COUNT 4.44 x10e6/uL (3.6-5.1); RED CELL DISTRIBUTION WIDTH 15.6 % (11.7-14.4); WHITE BLOOD COUNT 12.58 x10e3/uL (4.8-10.8)
[2024-10-19 08:16] LABS: ALBUMIN/GLOBULIN RATIO 0.7 (0.8-2.0); ANION GAP 13.5 mmol/L (8-16); BILIRUBIN,TOTAL 1.1 mg/dL (0.2-1.2); CALCIUM 7.5 mg/dL (8.4-10.2); CREATININE, SERUM 0.8 mg/dL (0.57-1.11); POTASSIUM 4.5 mmol/L (3.5-5.1); TOTAL PROTEIN 4.8 g/dL (6.5-8.1)
[2024-10-19] MEDS: ACETAMINOPHEN 1000 MG/100 ML IV PRN (08:40)
[2024-10-19] MEDS ORDERED: SODIUM CHLORIDE 0.9% 1000ML 1,000 ML ONE (15:45)
[2024-10-19] MEDS ORDERED: SODIUM CHLORIDE 0.9% 100 ML IV ONE (16:00)
[2024-10-19] MEDS: SODIUM CHLORIDE 0.9% 1000ML 1,000 ML IV SCH (16:42)
[2024-10-20] VITALS (7 sets, daily range): BP systolic 125–152; BP diastolic 67–85; PULSE 84–105; RESP 18–21; TEMP 98.5–100.8; O2SAT 94–100
[2024-10-20 05:00] LABS: BASOPHILS % 0.2 % (0.0-1.0); EOSINOPHILS % 0.3 % (0.0-6.0); HEMATOCRIT 30.2 % (34.2-44.1); HEMOGLOBIN 9.7 g/dL (12.0-16.0); LYMPHOCYTES # (AUTO) 0.8 (1.0-3.2); LYMPHOCYTES % 6.2 % (18.0-39.1); MEAN CORPUSCULAR HEMOGLOBIN 29.1 pg (28-32); MEAN CORPUSCULAR HGB CONC 32.1 g/dL (31-35); MEAN CORPUSCULAR VOLUME 90.7 fL (81-99); MONOCYTES # (AUTO) 0.5 (0.2-0.8); MONOCYTES % 3.9 % (4.4-11.3); NEUTROPHILS # (AUTO) 10.9 (2.1-6.9); NEUTROPHILS % 88.7 % (38.7-80.0); PLATELET COUNT 191 x10e3/uL (140-360); RED BLOOD COUNT 3.33 x10e6/uL (3.6-5.1); RED CELL DISTRIBUTION WIDTH 14.6 % (11.7-14.4); WHITE BLOOD COUNT 12.26 x10e3/uL (4.8-10.8)
[2024-10-20 05:25] LABS: ALBUMIN 1.7 g/dL (3.5-5.0); ALBUMIN/GLOBULIN RATIO 0.6 (0.8-2.0); ANION GAP 11.2 mmol/L (8-16); BILIRUBIN,TOTAL 0.8 mg/dL (0.2-1.2); CALCIUM 7.6 mg/dL (8.4-10.2); CREATININE, SERUM 0.61 mg/dL (0.57-1.11); TOTAL PROTEIN 4.4 g/dL (6.5-8.1)
[2024-10-20 05:26] LABS: POTASSIUM 3.2 mmol/L (3.5-5.1)
[2024-10-20] MEDS: BUPIVACAINE LIPOSOME/PF 266 MG/20 ML IJ ONE (21:39)
[2024-10-21 04:00] VITALS: BP 128/68; PULSE 70; RESP 18; TEMP 96.5; O2SAT 95
[2024-10-21 05:41] LABS: BASOPHILS % 0.2 % (0.0-1.0); EOSINOPHILS # (AUTO) 0.1 (0.0-0.4); EOSINOPHILS % 0.4 % (0.0-6.0); HEMATOCRIT 28.1 % (34.2-44.1); HEMOGLOBIN 9.2 g/dL (12.0-16.0); LYMPHOCYTES # (AUTO) 0.9 (1.0-3.2); LYMPHOCYTES % 8.1 % (18.0-39.1); MEAN CORPUSCULAR HEMOGLOBIN 29.2 pg (28-32); MEAN CORPUSCULAR HGB CONC 32.7 g/dL (31-35); MEAN CORPUSCULAR VOLUME 89.2 fL (81-99); MONOCYTES # (AUTO) 0.6 (0.2-0.8); NEUTROPHILS # (AUTO) 9.5 (2.1-6.9); NEUTROPHILS % 84.4 % (38.7-80.0); PLATELET COUNT 186 x10e3/uL (140-360); RED BLOOD COUNT 3.15 x10e6/uL (3.6-5.1); RED CELL DISTRIBUTION WIDTH 13.5 % (11.7-14.4)
[2024-10-21 06:15] LABS: ALBUMIN 1.6 g/dL (3.5-5.0); ALBUMIN/GLOBULIN RATIO 0.5 (0.8-2.0); ANION GAP 14.6 mmol/L (8-16); BILIRUBIN,TOTAL 0.7 mg/dL (0.2-1.2); CALCIUM 8.1 mg/dL (8.4-10.2); CREATININE, SERUM 0.54 mg/dL (0.57-1.11); TOTAL PROTEIN 4.8 g/dL (6.5-8.1)
[2024-10-21 06:17] LABS: POTASSIUM 2.6 mmol/L (3.5-5.1)
[2024-10-21] MEDS ORDERED: POTASSIUM CHLORIDE 10MEQ/100ML 1,000 ML IV ONE (06:45)
[2024-10-21] MEDS: POTASSIUM CHLORIDE 30 MEQ in SODIUM CHLORIDE 0.9% 1000ML 1,000 ML IV SCH (07:59)
[2024-10-21 09:00] VITALS: BP 166/72; PULSE 66; RESP 18; O2SAT 97
[2024-10-21 11:56] VITALS: BP 187/86; PULSE 59; RESP 18; TEMP 98.2; O2SAT 97
[2024-10-21] MEDS: KCL 20 MEQ PACKET/ ORAL SOLN NG SCH (13:40)
[2024-10-21] MEDS: D5.45%NS/KCL 20MEQ 1,000 ML IV SCH (13:43)
[2024-10-21] MEDS: Morphine 4mg INJECTION 4 MG/ML INJ IV PRN (13:43)
[2024-10-21 16:00] VITALS: BP 123/64; PULSE 53; RESP 18; TEMP 97.7; O2SAT 96
[2024-10-21 20:00] VITALS: BP 120/59; PULSE 53; RESP 18; TEMP 97.7; O2SAT 100
[2024-10-21 21:00] VITALS: BP 120/59; PULSE 53; RESP 18; TEMP 97.7; O2SAT 100
[2024-10-22] VITALS (8 sets, daily range): BP systolic 116–136; BP diastolic 58–69; PULSE 55–68; RESP 17–18; TEMP 97.8–98.3; O2SAT 93–100
[2024-10-22 10:14] LABS: BASOPHILS % 0.3 % (0.0-1.0); EOSINOPHILS # (AUTO) 0.1 (0.0-0.4); EOSINOPHILS % 1.6 % (0.0-6.0); HEMATOCRIT 28.1 % (34.2-44.1); HEMOGLOBIN 9.3 g/dL (12.0-16.0); LYMPHOCYTES # (AUTO) 0.7 (1.0-3.2); LYMPHOCYTES % 10.8 % (18.0-39.1); MEAN CORPUSCULAR HEMOGLOBIN 28.9 pg (28-32); MEAN CORPUSCULAR HGB CONC 33.1 g/dL (31-35); MEAN CORPUSCULAR VOLUME 87.3 fL (81-99); MONOCYTES # (AUTO) 0.6 (0.2-0.8); MONOCYTES % 9.9 % (4.4-11.3); NEUTROPHILS # (AUTO) 4.9 (2.1-6.9); NEUTROPHILS % 76.3 % (38.7-80.0); PLATELET COUNT 202 x10e3/uL (140-360); RED BLOOD COUNT 3.22 x10e6/uL (3.6-5.1); RED CELL DISTRIBUTION WIDTH 12.9 % (11.7-14.4); WHITE BLOOD COUNT 6.37 x10e3/uL (4.8-10.8)
[2024-10-22 10:23] LABS: ALBUMIN 1.5 g/dL (3.5-5.0); ALBUMIN/GLOBULIN RATIO 0.5 (0.8-2.0); ANION GAP 10.7 mmol/L (8-16); BILIRUBIN,TOTAL 0.7 mg/dL (0.2-1.2); CALCIUM 7.7 mg/dL (8.4-10.2); CREATININE, SERUM 0.51 mg/dL (0.57-1.11); TOTAL PROTEIN 4.5 g/dL (6.5-8.1)
[2024-10-22 10:25] LABS: POTASSIUM 2.7 mmol/L (3.5-5.1)
[2024-10-22] MEDS ORDERED: POTASSIUM CHLORIDE 20 MEQ TAB CR PO SCH (14:00)
[2024-10-22] MEDS: POTASSIUM CHLORIDE 10MEQ EA PO SCH (14:34)
[2024-10-22] MEDS: ACETAMINOPHEN 325 MG TAB PO PRN (21:46)
[2024-10-23] VITALS (8 sets, daily range): BP systolic 107–126; BP diastolic 66–70; PULSE 52–62; RESP 17–18; TEMP 97.8–98.2; O2SAT 99–100
[2024-10-23] MEDS: KCL 20 MEQ PACKET/ ORAL SOLN PO SCH (12:00)
[2024-10-23] MEDS ORDERED: HYDROCODONE/APAP 7.5MG-325MG 1 EA TAB PO PRN (18:15)
[2024-10-23] MEDS: POTASSIUM CHLORIDE 10MEQ EA PO SCH (20:00)
[2024-10-24] VITALS (8 sets, daily range): BP systolic 106–121; BP diastolic 58–68; PULSE 56–66; RESP 17–20; TEMP 98–98.3; O2SAT 99–100
[2024-10-24] MEDS ORDERED: POTASSIUM CHLORIDE 20MEQ/100ML 50 ML IV ONE (04:30)
[2024-10-24] MEDS: POTASSIUM CHLORIDE 20MEQ/100ML 100 ML IV SCH (10:12)
[2024-10-24 10:37] LABS: BASOPHILS % 0.1 % (0.0-1.0); EOSINOPHILS % 0.6 % (0.0-6.0); HEMATOCRIT 29.7 % (34.2-44.1); HEMOGLOBIN 9.7 g/dL (12.0-16.0); LYMPHOCYTES # (AUTO) 1.2 (1.0-3.2); LYMPHOCYTES % 16.1 % (18.0-39.1); MEAN CORPUSCULAR HEMOGLOBIN 28.6 pg (28-32); MEAN CORPUSCULAR HGB CONC 32.7 g/dL (31-35); MEAN CORPUSCULAR VOLUME 87.6 fL (81-99); MONOCYTES # (AUTO) 0.5 (0.2-0.8); MONOCYTES % 7.1 % (4.4-11.3); NEUTROPHILS # (AUTO) 5.4 (2.1-6.9); NEUTROPHILS % 74.3 % (38.7-80.0); PLATELET COUNT 269 x10e3/uL (140-360); RED BLOOD COUNT 3.39 x10e6/uL (3.6-5.1); RED CELL DISTRIBUTION WIDTH 12.7 % (11.7-14.4); WHITE BLOOD COUNT 7.21 x10e3/uL (4.8-10.8)
[2024-10-24 10:40] LABS: ALBUMIN 1.7 g/dL (3.5-5.0); ALBUMIN/GLOBULIN RATIO 0.4 (0.8-2.0); ANION GAP 13.3 mmol/L (8-16); BILIRUBIN,TOTAL 0.9 mg/dL (0.2-1.2); CALCIUM 8.2 mg/dL (8.4-10.2); CREATININE, SERUM 0.52 mg/dL (0.57-1.11); POTASSIUM 3.3 mmol/L (3.5-5.1); TOTAL PROTEIN 5.6 g/dL (6.5-8.1)
[2024-10-25] VITALS (7 sets, daily range): BP systolic 102–116; BP diastolic 59–66; PULSE 59–74; RESP 16–20; TEMP 98–98.8; O2SAT 98–100
[2024-10-25 06:31] LABS: BASOPHILS % 0.4 % (0.0-1.0); EOSINOPHILS # (AUTO) 0.1 (0.0-0.4); EOSINOPHILS % 1.3 % (0.0-6.0); HEMATOCRIT 27.4 % (34.2-44.1); HEMOGLOBIN 8.9 g/dL (12.0-16.0); LYMPHOCYTES # (AUTO) 1.3 (1.0-3.2); MEAN CORPUSCULAR HEMOGLOBIN 28.6 pg (28-32); MEAN CORPUSCULAR HGB CONC 32.5 g/dL (31-35); MEAN CORPUSCULAR VOLUME 88.1 fL (81-99); MONOCYTES # (AUTO) 0.5 (0.2-0.8); MONOCYTES % 9.8 % (4.4-11.3); NEUTROPHILS # (AUTO) 3.3 (2.1-6.9); NEUTROPHILS % 61.2 % (38.7-80.0); PLATELET COUNT 271 x10e3/uL (140-360); RED BLOOD COUNT 3.11 x10e6/uL (3.6-5.1); RED CELL DISTRIBUTION WIDTH 13.1 % (11.7-14.4); WHITE BLOOD COUNT 5.32 x10e3/uL (4.8-10.8)
[2024-10-25 07:28] LABS: ALBUMIN 1.7 g/dL (3.5-5.0); ALBUMIN/GLOBULIN RATIO 0.5 (0.8-2.0); ANION GAP 10.9 mmol/L (8-16); BILIRUBIN,TOTAL 0.7 mg/dL (0.2-1.2); CALCIUM 7.7 mg/dL (8.4-10.2); CREATININE, SERUM 0.54 mg/dL (0.57-1.11); POTASSIUM 3.9 mmol/L (3.5-5.1); TOTAL PROTEIN 5.4 g/dL (6.5-8.1)
[2024-10-25] MEDS: SODIUM CHLORIDE 0.9% 500ML 0 ML ONE (07:36)
[2024-10-25] MEDS: POTASSIUM CHLORIDE 20MEQ/100ML 100 ML ONE (07:37)
[2024-10-25 12:31] LABS: EOSINOPHILS % (MANUAL) 5 % (0-7); HYPOCHROMASIA MODERATE; LYMPHOCYTES % (MANUAL) 23 % (19-48); METAMYELOCYTES % (MANUAL) 2 % (0-0); MONOCYTES % (MANUAL) 4 % (3.4-9.0); NEUTROPHILS % (MANUAL) 66 % (40-74); PLATELET ESTIMATE ADEQUATE; PLATELET MORPHOLOGY COMMENT NORMAL
[2024-10-26] VITALS (7 sets, daily range): BP systolic 97–116; BP diastolic 50–66; PULSE 54–68; RESP 17–19; TEMP 97.7–98.6; O2SAT 100
[2024-10-26] MEDS ORDERED: Morphine 4mg INJECTION 4 MG/ML INJ IV PRN (19:00)
[2024-10-27] VITALS (7 sets, daily range): BP systolic 101–114; BP diastolic 52–65; PULSE 56–69; RESP 17–18; TEMP 97.8–98.3; O2SAT 100
[2024-10-27 06:32] LABS: BASOPHILS % 0.8 % (0.0-1.0); EOSINOPHILS # (AUTO) 0.1 (0.0-0.4); EOSINOPHILS % 1.5 % (0.0-6.0); LYMPHOCYTES # (AUTO) 1.3 (1.0-3.2); LYMPHOCYTES % 27.7 % (18.0-39.1); MEAN CORPUSCULAR HEMOGLOBIN 28.7 pg (28-32); MEAN CORPUSCULAR HGB CONC 32.1 g/dL (31-35); MEAN CORPUSCULAR VOLUME 89.2 fL (81-99); MONOCYTES # (AUTO) 0.5 (0.2-0.8); MONOCYTES % 10.5 % (4.4-11.3); NEUTROPHILS # (AUTO) 2.8 (2.1-6.9); NEUTROPHILS % 57.8 % (38.7-80.0); PLATELET COUNT 316 x10e3/uL (140-360); RED BLOOD COUNT 3.14 x10e6/uL (3.6-5.1); RED CELL DISTRIBUTION WIDTH 13.1 % (11.7-14.4); WHITE BLOOD COUNT 4.77 x10e3/uL (4.8-10.8)
[2024-10-27 07:17] LABS: ALBUMIN 1.9 g/dL (3.5-5.0); ALBUMIN/GLOBULIN RATIO 0.5 (0.8-2.0); ANION GAP 10.7 mmol/L (8-16); BILIRUBIN,TOTAL 0.6 mg/dL (0.2-1.2); CALCIUM 7.9 mg/dL (8.4-10.2); CREATININE, SERUM 0.59 mg/dL (0.57-1.11); POTASSIUM 3.7 mmol/L (3.5-5.1); TOTAL PROTEIN 5.9 g/dL (6.5-8.1)
[2024-10-28] VITALS: BP 104/55; PULSE 55; RESP 18; TEMP 97.7; O2SAT 99
[2024-10-28 04:00] VITALS: BP 104/58; PULSE 57; RESP 18; TEMP 97.9; O2SAT 100
[2024-10-28 08:00] VITALS: BP 102/59; PULSE 57; RESP 18; TEMP 97.7; O2SAT 100
[2024-10-28 12:20] VITALS: BP 96/53; PULSE 59; RESP 18; TEMP 97.9; O2SAT 100
== END 2024-10-28 16:52 | disposition home or self-care (01) | DRG 330 ==
LOC: ER 11:00 → ERHOLD 11:49 → MED/SURG3 15:46 → ICU 10-18 14:59 → MED/SURG2 10-19 15:28
PROVIDERS: ADMIT Surgery; ATTEND Surgery
PROC: 0DSB0ZZ Reposition Ileum, Open Approach (ICD-10-PCS; 2024-10-18)
PROC: 0DN80ZZ Release Small Intestine, Open Approach (ICD-10-PCS; 2024-10-18)
PROC: 0DNW0ZZ Release Peritoneum, Open Approach (ICD-10-PCS; 2024-10-18)
PROC: 0UNF0ZZ Release Cul-de-sac, Open Approach (ICD-10-PCS; 2024-10-18)
PROC: 0DBB0ZZ Excision of Ileum, Open Approach (ICD-10-PCS; 2024-10-18)
PROC: 30233N1 Transfusion of Nonautologous Red Blood Cells into Peripheral Vein, Percutaneous Approach (ICD-10-PCS; principal; 2024-10-18 08:48)
PROC: 02HV33Z Insertion of Infusion Device into Superior Vena Cava, Percutaneous Approach (ICD-10-PCS; 2024-10-23)
PROC: B548ZZA Ultrasonography of Superior Vena Cava, Guidance (ICD-10-PCS; 2024-10-23)
DX: K56.51 Intestinal adhesions [bands], with partial obstruction (principal); D62 Acute posthemorrhagic anemia; K94.13 Enterostomy malfunction; K50.90 Crohn's disease, unspecified, without complications; Y83.3 Surgical operation with formation of external stoma as the cause of abnormal reaction of the patient, or of later complication, without mention of misadventure at the time of the procedure; Y92.009 Unspecified place in unspecified non-institutional (private) residence as the place of occurrence of the external cause; Z71.3 Dietary counseling and surveillance; Z68.31 Body mass index [BMI] 31.0-31.9, adult; Z90.49 Acquired absence of other specified parts of digestive tract; Z79.899 Other long term (current) drug therapy
CPT/HCPCS: 36415; 36569; 71045; 74022; 74177; 80048; 80053; 83690; 83735; 85025; 85610; 85730; 86850; 86900; 86920; 88304; 88307; 94799; 99252; 99284; J0330; J0696; J1100; J1885; J2003; J2185; J2270; J2405; J2470; J2543; J2550; J2765; J3480; J7030; J7040; J7050; P9016; Q9967